=== PATIENT | female | born 1980 | race Hispanic/Latino ===

== ENCOUNTER 2018-02-04 19:38 | Emergency (ER) | payer MEDICAID, OTHER ==
[2018-02-04 20:09] LABS: APPEARANCE,URINE CLOUDY (CLEAR); BILIRUBIN,URINE MODERATE (NEGATIVE); COLOR,URINE RED (YELLOW); GLUCOSE, URINE (UA) NEGATIVE (NEGATIVE); KETONES,URINE 15 mg/dL (NEGATIVE); LEUKOCYTE ESTERASE ,URINE LARGE (NEGATIVE); NITRATE,URINE POSITIVE (NEGATIVE); OCCULT BLOOD,URINE LARGE (NEGATIVE); PROTEIN,URINE >=300 (NEGATIVE)
[2018-02-04 20:11] LABS: HCG,QUAL RESULT NEGATIVE (NEGATIVE)
[2018-02-04 20:29] LABS: BACTERIA,URINE None Seen /HPF (None Seen); RBC,URINE Full Field /HPF (0-1); WBC,URINE 26-50 /HPF (0-1)
[2018-02-04 20:58] LABS: BASOPHILS % (AUTO) 0.6 % (0.0-5.0); EOSINOPHILS % (AUTO) 2.9 % (0.0-8.0); HEMATOCRIT 36.2 % (36-48); LYMPHOCYTES % (AUTO) 23.9 % (21.0-51.0); MEAN CORPUSCULAR HEMOGLOBIN 27.9 pg (27.0-33.0); MEAN CORPUSCULAR HGB CONC 33.9 g/dL (32.0-36.0); MEAN CORPUSCULAR VOLUME 82.4 fL (79-99); NEUTROPHILS % (AUTO) 64.6 % (40.0-77.0); PLATELET COUNT (AUTO) 264 K/uL (130-400); RED CELL DISTRIBUTION WIDTH 15.5 % (11.0-15.5); WHITE BLOOD COUNT (AUTO) 9.7 K/uL (4.8-10.8)
[2018-02-04] MEDS ORDERED: CEFTRIAXONE SODIUM 1 GM ONE (21:51)
[2018-02-04] MEDS ORDERED: LIDOCAINE HCL-MPF 1% 2ML VIAL ONE (21:51)
== END 2018-02-05 00:11 | disposition home or self-care (01) ==
LOC: EDH 19:38
DX: O20.9 Hemorrhage in early pregnancy, unspecified (principal); O23.41 Unspecified infection of urinary tract in pregnancy, first trimester; Z3A.01 Less than 8 weeks gestation of pregnancy; Z91.040 Latex allergy status
CPT/HCPCS: 36415; 76817; 81001; 81025; 84702; 85025; 86900; 86901; 87088; 96372; 99285; J0696; J3490

== ENCOUNTER 2018-02-06 01:09 | Emergency (ER) | payer OTHER | END 2018-02-06 04:38 | disposition home or self-care (01) | LOC: EDH 01:09 | DX: O03.4 Incomplete spontaneous abortion without complication (principal); Z91.040 Latex allergy status; Z79.899 Other long term (current) drug therapy; Z3A.01 Less than 8 weeks gestation of pregnancy | CPT/HCPCS: 36415; 76801; 84702 ==

== ENCOUNTER 2021-04-14 08:40 | Emergency (ER) | payer MEDICAID ==
[~2021-04-14] VITALS: Ht 147.3 cm; Wt 68.0 kg
[2021-04-14 08:59] VITALS: BP 116/69
[2021-04-14] MEDS ORDERED: DIPH-951 PO (10:03)
== END 2021-04-14 11:26 | disposition home or self-care (01) ==
LOC: EDH 08:40
DX: J06.9 Acute upper respiratory infection, unspecified (principal)
CPT/HCPCS: 99281

== ENCOUNTER → 2023-04-07 | Outpatient (CLI) | payer MEDICAID ==
[~2023-04-07] MED LIST: DIPH-951 PO
== END | disposition home or self-care (01) ==
LOC: RAH 10:12
PROVIDERS: ATTEND Nurse Practitioner Family
DX: Z12.31 Encounter for screening mammogram for malignant neoplasm of breast (principal)
CPT/HCPCS: 77067